=== PATIENT | male | born 1990 | race Caucasian/White ===

== ENCOUNTER 2022-07-29 09:01 | Emergency (ER) | payer BC, SELFPAY ==
[2022-07-29 09:08] VITALS: BP 135/78; PULSE 58; RESP 20; TEMP 36.4; O2SAT 96
--- NOTE | 2022-07-29 09:22 | ED.DENTAL ---
HPI - Dental/Oral General Chief complaint: Dental/Oral Stated complaint: tooth pain Time Seen by Provider: 07/29/22 09:18 Source: patient, RN notes reviewed and old records reviewed Mode of arrival: ambulatory Limitations: no limitations History of Present Illness HPI Narrative: 31-year-old male who presents to [facility] care with complaints of dental pain with noted swelling of gum with redness and decay#3 tooth since Saturday (2 days). Face palpation pressure with patient states that pain is throbbing rates it a , has been taking Tylenol and ibuprofen with no relief of pain. He has also used some topical lidocaine that his had at home with no improvement in pain. Patient also states pain to his right facial area with no acute swelling noted, no trismus or any difficulty with breathing or swallowing noted. MD Complaint: tooth pain Location: Tooth # (3) Onset (ago): day(s) (2) Duration: constant Severity scale (1-10): 10 Treatment prior to arrival: topical analgesic and oral analgesic (Tylenol and Ibuprofen) Related Data Home Medications Medication Instructions Recorded Confirmed amlodipine 5 mg tablet mg 07/29/22 atorvastatin 20 mg tablet mg 07/29/22 07/29/22 Allergies Allergy/AdvReac Type Severity Reaction Status Date / Time No Known Allergies Allergy Verified 07/29/22 09:32 Review of Systems Review of Systems: CONSTITUTIONAL: Denies fever, chills, or sweats. ENT: Denies rhinorrhea, congestion, sore throat, or otalgia. Reports dental pain to #3 tooth with some gum swelling and redness around tooth with pain also to right side of face. CARDIOVASCULAR: Denies chest pain, palpitations, or edema. RESPIRATORY: Denies cough or dyspnea. SKIN: Denies rash or itching. MUSCULOSKELETAL: Denies myalgia. NEUROLOGIC: Denies headache All systems reviewed & are unremarkable except as noted in HPI and below PMFSH Past Medical History Medical History (Updated 07/29/22 @ 09:50 by Nadine Mendez NP) Elevated cholesterol Hypertension Surgical History Surgical History (Updated 07/29/22 @ 09:50 by Nadine Mendez NP) H/O vasectomy [place] teeth extracted Social History Social History (Updated 07/29/22 @ 09:47 by Nadine Mendez NP) Smokeless tobacco user: chewing tobacco Alcohol intake: current Alcohol use details: social Substance use type: does not use Living arrangements: with family Gender identity (if verbalized by the patient): Male Comments At time of signature, agree with nursing past medical, surgical, social and family history. There is no relevant family history pertinent to the presenting complaint Exam Narrative: GENERAL: Well-appearing, well-nourished, and in no acute distress. HEAD: Normocephalic, atraumatic. EYES: PERRLA and EOMI. ENT: Nares clear, no rhinorrhea or epistaxis. Mucous membranes moist. Missing tooth, caries noted to #3 tooth with swelling and redness of gum around tooth, pain to right side of face also with no acute swelling,no trismus noted or any difficulty with swallowing or breathing. NECK: Supple.no lymphadenopathy CHEST: Clear to auscultation. No respiratory distress.SAO2 96% on room air HEART: Regular rate and rhythm. No murmur heard. Normal peripheral pulses. SKIN: Warm, dry, no rash. NEURO: No focal deficits. Alert and oriented x3. Course Course Emergency Course: Patient is aware of diagnosis, understands and agrees to treatment plan. Anticipatory guidance given. Patient agrees to follow-up as directed and is aware of reasons to seek care at the emergency department. Portions of this record may have been created with voice recognition software Level of Care: Express Care Visit Vital Signs Vital signs: Vital Signs Temperature 36.4 C L 07/29/22 09:08 Pulse Rate 58 L 07/29/22 09:08 Respiratory Rate 20 07/29/22 09:08 Blood Pressure 135/78 07/29/22 09:08 Pulse Oximetry 96 07/29/22 09:08 Oxygen Delivery Room Air 07/29/22 09
== END 2022-07-29 09:08 | disposition home or self-care (01) ==
PROVIDERS: Emergency Provider Registered Nurse
DX: K04.7 Periapical abscess without sinus (principal); F17.220 Nicotine dependence, chewing tobacco, uncomplicated; E78.00 Pure hypercholesterolemia, unspecified; I10 Essential (primary) hypertension
CPT/HCPCS: 99213; G0463